=== PATIENT | male | born 2000 | race Caucasian/White ===

== ENCOUNTER 2022-10-02 12:30 | Emergency (ER) | payer OTHER, SELFPAY ==
[2022-10-02 12:58] VITALS: BP 112/71; PULSE 87; RESP 18; TEMP 36.6; O2SAT 98
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
[2022-10-02 13:51] VITALS: BP 126/83; PULSE 78; RESP 16; TEMP 36.6
[2022-10-02] MEDS: ONDANSETRON ODT 4 MG TAB PO (14:05)
--- NOTE | 2022-10-02 15:03 | ED.NURSE ---
Resident tolerating crackers and apple sauce after administration of Zofran. States that the roof of his mouth is a little sore when eating the crackers. Questions if this is from the vomiting episodes. Will update provider.
== END 2022-10-02 15:25 | disposition home or self-care (01) ==
PROVIDERS: Emergency Provider Family Medicine
DX: R11.10 Vomiting, unspecified (principal)
CPT/HCPCS: 99283; 99284; A9270

== ENCOUNTER 2023-01-20 11:53 | Emergency (ER) | payer OTHER, SELFPAY ==
[2023-01-20 12:01] VITALS: BP 123/89; PULSE 92; RESP 16; TEMP 36.2; O2SAT 99; BMI 20.6
--- NOTE | 2023-01-20 12:16 | ED.GENADULT ---
HPI - General Adult General Chief complaint: Ear/Nose/Throat Problem Stated complaint: ill Time Seen by Provider: 01/20/23 11:56 History of Present Illness HPI narrative: Sunday started w/ stuffy nose and nasal drainage. Started to improve but now having increased sinus pressure and sore throat. Feels hot but does not have thermometer to check temp at home. No known sick contacts. Denies SOB. 22-year-old young man here with congestion and rhinorrhea. Is having some more pressure in his face and a little sore throat. Has felt warm but no measured fever. Is not short of breath. Four days of symptoms. Did try pseudoephedrine which did help him go to sleep he thinks last night. Just woke worse today. Wondering if this might represent COVID. Vaccinated for COVID. Related Data Home Medications Medication Instructions Recorded Confirmed No Known Home Medications 10/02/22 01/20/23 Allergies Allergy/AdvReac Type Severity Reaction Status Date / Time No Known Drug Allergies Allergy Verified 01/20/23 12:06 Review of Systems Status of ROS: Reports: 6 or more systems reviewed and unremarkable except as noted in History and below PFSH COUNTS INCLUDE 234 BEDS AT THE [facility] Social History Smoking Status: Never smoker Do you use any of these nicotine containing products: Vaping Products Second hand tobacco smoke exposure: No How often do you have a drink containing alcohol: 2-4 times a month How many standard drinks containing alcohol do you have on a typical day: 3 or 4 How often do you have six or more drinks on one occasion: Never AUDIT-C Alcohol total score: 3 Non-prescribed substance use: marijuana (any form) Non-prescribed substance use details: Twice per month service: No Exam Narrative: Exam Narrative: Pleasant. NAD. Breathing easily. Nasopharyngeal congestion. bilateral TMs full pink semi transparent. oropharynx is without erythema or and neck without lymphadenopathy Mildly tender to palpation over the maxillary sinuses. Lungs clear. Heart with elevated rate and regular rhythm. Skin is warm and dry. Little flushed over face initially. Const: Vital Signs, click to edit/add: Vital Signs - 24 hr 01/20/23 12:01 Temperature 97.2 F L Pulse Rate [Pulse Oximeter] 92 Respiratory Rate 16 Blood Pressure [Ri ght Upper Arm] 123/89 Pulse Oximetry 99 Oxygen Delivery Me thod Room Air Documenting provider has reviewed patient's vital signs: yes Course Vital Signs Vital signs: Initial Vital Signs Temperature 97.2 F L 01/20/23 12:01 Temperature Source Temporal Artery Scan 01/20/23 12:01 Pulse Rate 92 01/20/23 12:01 Pulse Rhythm Regular 01/20/23 12:01 Pulse Strength 3+ Normal 01/20/23 12:01 Respiratory Rate 16 01/20/23 12:01 Blood Pressure 123/89 01/20/23 12:01 Blood Pressure Mean 100 01/20/23 12:01 Blood Pressure Position Sitting 01/20/23 12:01 Pulse Oximetry 99 01/20/23 12:01 Oxygen Delivery Method Room Air 01/20/23 12:01 Vital Signs Temperature 97.2 F L 01/20/23 12:01 Pulse Rate 92 01/20/23 12:01 Respiratory Rate 16 01/20/23 12:01 Blood Pressure 123/89 01/20/23 12:01 Pulse Oximetry 99 01/20/23 12:01 Oxygen Delivery Method Room Air 01/20/23 12:01 Temperature 97.2 F L 01/20/23 12:01 Pulse Rate 92 01/20/23 12:01 Respiratory Rate 16 01/20/23 12:01 Blood Pressure 123/89 01/20/23 12:01 Pulse Oximetry 99 01/20/23 12:01 Oxygen Delivery Method Room Air 01/20/23 12:01 Medical Decision Making MDM Narrative Medical decision making narrative: Seems to have sinusitis and URI/head cold symptoms at this point. Certainly could be partially related to COVID. Can check for COVID influenza. Ultimately triple swab was negative. See patient discharge plan Lab Data Lab results reviewed: Yes I reviewed the patient's lab results Labs: Lab Results 01/20/23 Range/Units 12:08 SARS-CoV-2 (PCR) Negative SARS-CoV-2 (Negative) Influenza Type A (PCR) Negative PCR FLU A (Negative) Influenza Type B (PCR) Negative PCR FLU B (Negative) RSV (PCR) Negative PCR RSV (Negative) Discharge Plan Discharge Clinical Impression: Dysfunction of eustachian tube, Sinusitis Patient Disposition: Home, Self-Care Condition: Stable Additional Instructions: Focus on hydration with water. Consider sleeping under the mist of an ultrasonic/cool mist humidifier. 12 hour pseudoephedrine for decongestion/drying. Consider a neti pot and nasal saline rinses ? can buy a kit at [facility]?s, for example. Prednisone from [facility]. As 60 mg daily for 2 days, 40 mg daily for 4 days. As discussed, oxymetazoline nasal spray can provide quick relief of nasal congestion for temporary use. Can take up to 800 mg of ibuprofen per dose I will call you with results of the swabs if they are positive. Prescriptions: No Action No Known Home Medications Follow Up/Referrals: Provider,Not a Local [Primary Care Provider] - Stand Alone Forms: [email or web address] Info Instructions
[2023-01-20 13:02] LABS: PCR FLU A Negative PCR FLU A (Negative); PCR FLU B Negative PCR FLU B (Negative); PCR RSV Negative PCR RSV (Negative)
[2023-01-20 13:03] LABS: SARS PCR* Negative SARS-CoV-2 (Negative)
== END 2023-01-20 12:47 | disposition home or self-care (01) ==
LOC: ED 12:47
PROVIDERS: Emergency Provider Family Medicine
DX: Z20.822 Contact with and (suspected) exposure to COVID-19 (principal); J32.9 Chronic sinusitis, unspecified; H69.90 Unspecified Eustachian tube disorder, unspecified ear
CPT/HCPCS: 87631; 99283

== ENCOUNTER 2023-09-14 08:48 | Outpatient (CLI) | payer OTHER, SELFPAY | END 2023-09-14 08:49 | disposition home or self-care (01) | LOC: NFLDREF 08:49 | PROVIDERS: Visit Provider Family Medicine | DX: L08.9 Local infection of the skin and subcutaneous tissue, unspecified (principal); L72.3 Sebaceous cyst | CPT/HCPCS: 87070 ==

== ENCOUNTER 2024-01-11 10:04 | Emergency (ER) | payer OTHER, SELFPAY ==
[2024-01-11 10:29] VITALS: BP 125/85; PULSE 72; RESP 18; TEMP 36.1; O2SAT 100; BMI 20.6
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
[2024-01-11 12:01] LABS: Basophils Percent Auto 0.1 % (0.0-3.0); Hemoglobin* 16.7 gm/dL (13.5-17.5); Immature Granulocytes Pct Auto 0.1 %; Lymphocytes Percent Auto 3.1 % (20-44); Mean Corpuscular HGB Conc 36 gm/dL (32-36); Mean Corpuscular Hemoglobin 32 pg (26-34); Mean Corpuscular Volume 87 fL (80-100); Monocytes Percent Auto 3.1 % (0.0-11.0); Neutrophils Percent Auto 93.6 % (42.0-72.0); Platelet Count* 234 K/uL (140-440); RDW Coefficient of Variation % 11.7 % (11.5-15.5); Red Blood Count 5.31 m/uL (4.30-5.90); White Blood Count* 16.29 K/uL (4.50-11.00)
[2024-01-11] MEDS: 0.9 % SODIUM CHLORIDE 1000 ml 1,000 ML IV (12:01)
[2024-01-11] MEDS: ONDANSETRON 2 MG/ML inj 4 MG IVP (12:01)
[2024-01-11 12:06] LABS: Slide Review Reflex No
[2024-01-11 12:13] LABS: Chloride* 107 mmol/L (96-114)
[2024-01-11 12:14] LABS: Potassium* 3.7 mmol/L (3.6-5.1); Sodium* 139 mmol/L (135-149)
[2024-01-11 12:16] LABS: Alkaline Phosphatase* 101 U/L (40-150); Anion Gap 13 mEq/L (7-15); Aspartate Amino Transferase* 27 U/L (12-35); Bilirubin Total* 1.3 mg/dL (0.1-1.5); Blood Urea Nitrogen* 21 mg/dL (5-24); Carbon Dioxide* 19 mmol/L (20-32); Creatinine* 0.8 mg/dL (0.5-1.5); Est. Creatinine Clearance* 153.32; Estimated Glomerular Filt Rate 128 ml/min; Total Protein* 8.3 g/dL (6.0-8.3)
[2024-01-11 12:17] LABS: Alanine Aminotransferase* 23 U/L (4-50); Calcium* 9.5 mg/dL (8.4-10.6); Glucose* 144 mg/dL (60-115); Lipase* 83 U/L (23-300)
[2024-01-11] MEDS: HALOPERIDOL 5 MG/ML INJ IV (12:30)
[2024-01-11 12:48] VITALS: PULSE 66; O2SAT 98
[2024-01-11 13:00] VITALS: PULSE 69; O2SAT 99
[2024-01-11 13:01] VITALS: BP 132/75; PULSE 63; O2SAT 97
== END 2024-01-11 13:06 | disposition home or self-care (01) ==
PROVIDERS: Emergency Provider Emergency Medicine Emergency Medical Services
DX: R11.2 Nausea with vomiting, unspecified (principal)
CPT/HCPCS: 36415; 80048; 80076; 83690; 85025; 96374; 96375; 99284; J1630; J2405; J7030